=== PATIENT | male | born 1990 | race Caucasian/White ===

== ENCOUNTER 2017-02-03 07:57 | Outpatient (CLI) | payer OTHER ==
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
== END 2017-02-03 07:58 | disposition home or self-care (01) ==
LOC: NAV RAD 07:57
PROVIDERS: ATTEND Internal Medicine
DX: R07.9 Chest pain, unspecified (principal)
CPT/HCPCS: 71020